=== PATIENT | female | born 1990 | race African-American/Black ===

== ENCOUNTER 2017-03-06 03:54 | Emergency (ER) | payer MEDICAID ==
[~2017-03-06] VITALS: Ht 170.2 cm; Wt 100.0 kg
[2017-03-06] MEDS ORDERED: SODIUM CHLORIDE 0.9% 1,000 ML IV ONE (04:07)
[2017-03-06] MEDS ORDERED: KETOROLAC 30MG/ML VIAL IV STA (04:07)
[2017-03-06] MEDS ORDERED: FAMOTIDINE 20MG/2ML VIAL IV ONE (04:15)
[2017-03-06] MEDS ORDERED: ASPIRIN 81MG TABLET PO ONE (04:15)
[2017-03-06 04:43] LABS: EOSINOPHILS % 0.6 % (0.0-5.0); HEMATOCRIT. 33.1 % (36.0-48.0); HEMOGLOBIN. 10.9 g/dL (12.0-16.0); LYMPHOCYTES % 28.1 % (20.0-50.0); MEAN CORPUSCULAR HEMOGLOBIN 24.8 pg (28.0-32.0); MEAN CORPUSCULAR VOLUME 75.4 fL (81.0-99.0); MEAN PLATELET VOLUME 10.8 fl (7.4-10.4); MONOCYTES % 7.6 % (2.0-8.0); NEUTROPHILS % 62.7 % (40.0-76.0); PLATELET 181 x1000/uL (130-400); RED BLOOD CELL COUNT 4.39 mill/uL (4.2-5.4); RED CELL DISTRIBUTION WIDTH 13.6 % (11.6-14.6)
[2017-03-06] MEDS ORDERED: LABETALOL 5MG/ML SYR 20 MG/4 ML SYRINGE IV ONE (04:45)
[2017-03-06 05:01] LABS: CARBON DIOXIDE 29 mEq/L (21-32); CHLORIDE 107 mEq/L (98-107)
[2017-03-06 05:10] LABS: HCG SCREEN NEGATIVE
[2017-03-06 05:18] LABS: ETHANOL BLOOD < 10 mg/dL; TROPONIN I < 0.02 ng/mL (0.00-0.04)
[2017-03-06 05:45] LABS: CLARITY URINE CLEAR (CLEAR); COLOR URINE YELLOW (YELLOW); GLUCOSE URINE NEGATIVE (NEGATIVE); KETONES URINE NEGATIVE (NEGATIVE); LEUKOCYTE ESTERASE URINE NEGATIVE (NEGATIVE); NITRITE URINE NEGATIVE (NEGATIVE); OCCULT BLOOD URINE NEGATIVE (NEGATIVE); PH URINE 5.5 (4.5-8.0); PROTEIN URINE NEGATIVE (NEGATIVE); SPECIFIC GRAVITY URINE 1.018 (1.005-1.030); UROBILINOGEN URINE 0.2 E.U./dL (0.2-1.0)
[2017-03-06 06:25] VITALS: BP 120/59
[2017-03-06 06:27] LABS: *AMPHETAMINES SCREEN URINE NEGATIVE (NEGATIVE); *BARBITURATES SCREEN URINE NEGATIVE (NEGATIVE); *BENZODIAZEPINES SCREEN URINE NEGATIVE (NEGATIVE); *COCAINE SCREEN URINE NEGATIVE (NEGATIVE); METHADONE URINE SCREEN NEGATIVE (NEGATIVE); OPIATES URINE SCREEN NEGATIVE (NEGATIVE); PHENCYCLIDINE URINE SCREEN NEGATIVE (NEGATIVE)
[2017-03-06 06:30] LABS: CANNABINOID URINE SCREEN PRESUMTIVE POSITIVE (NEGATIVE)
== END 2017-03-06 06:23 | disposition home or self-care (01) ==
LOC: ER 04:06
DX: R07.89 Other chest pain (principal); I10 Essential (primary) hypertension; K76.0 Fatty (change of) liver, not elsewhere classified; E05.90 Thyrotoxicosis, unspecified without thyrotoxic crisis or storm; F41.9 Anxiety disorder, unspecified; F32.9 Major depressive disorder, single episode, unspecified; Z91.14 Patient's other noncompliance with medication regimen; Z91.19 Patient's noncompliance with other medical treatment and regimen
CPT/HCPCS: 36415; 71010; 76705; 80053; 80305; 81003; 83690; 83880; 84443; 84484; 84703; 85025; 93005; 96361; 96374; 96375; 99291; G0482; J1885; J3490; J7030

== ENCOUNTER 2017-05-01 08:49 | Emergency (ER) | payer MEDICAID ==
[~2017-05-01] VITALS: Ht 167.6 cm; Wt 86.0 kg
[~2017-05-01 08:49] MED LIST: AMLO10TA80 PO; ATOR20TA65 PO; METH10TA7 PO; MIRT15TA6 PO; PROP20TA7 PO
[2017-05-01] MEDS ORDERED: SODIUM CHLORIDE 0.9% 1,000 ML IV ONE (12:33)
[2017-05-01] MEDS ORDERED: ONDANSETRON HCL 4MG/2ML VIAL IV STA (12:33)
[2017-05-01 13:02] LABS: BASOPHILS % 0.4 % (0.0-2.0); EOSINOPHILS % 0.6 % (0.0-5.0); HEMATOCRIT. 33.3 % (36.0-48.0); HEMOGLOBIN. 10.8 g/dL (12.0-16.0); MEAN CORPUSCULAR HEMOGLOBIN 24.5 pg (28.0-32.0); MEAN CORPUSCULAR VOLUME 75.9 fL (81.0-99.0); MEAN PLATELET VOLUME 10.3 fl (7.4-10.4); MONOCYTES % 7.1 % (2.0-8.0); NEUTROPHILS % 59.9 % (40.0-76.0); PLATELET 314 x1000/uL (130-400); RED BLOOD CELL COUNT 4.39 mill/uL (4.2-5.4); RED CELL DISTRIBUTION WIDTH 14.3 % (11.6-14.6)
[2017-05-01 13:10] LABS: CLARITY URINE CLEAR (CLEAR); COLOR URINE YELLOW (YELLOW); KETONES URINE NEGATIVE (NEGATIVE); LEUKOCYTE ESTERASE URINE NEGATIVE (NEGATIVE); NITRITE URINE NEGATIVE (NEGATIVE); OCCULT BLOOD URINE NEGATIVE (NEGATIVE); PH URINE 7.5 (4.5-8.0); PROTEIN URINE NEGATIVE (NEGATIVE); SPECIFIC GRAVITY URINE 1.017 (1.005-1.030); UROBILINOGEN URINE 0.2 E.U./dL (0.2-1.0)
[2017-05-01 13:10] LABS: CHLORIDE 107 mEq/L (98-107)
[2017-05-01 13:33] LABS: CARBON DIOXIDE 26 mEq/L (21-32); T4 FREE 3.07 ng/dL (0.76-1.46)
[2017-05-01 13:34] LABS: *AMPHETAMINES SCREEN URINE NEGATIVE (NEGATIVE); *BARBITURATES SCREEN URINE NEGATIVE (NEGATIVE); *BENZODIAZEPINES SCREEN URINE NEGATIVE (NEGATIVE); *COCAINE SCREEN URINE NEGATIVE (NEGATIVE); CANNABINOID URINE SCREEN NEGATIVE (NEGATIVE); METHADONE URINE SCREEN NEGATIVE (NEGATIVE); OPIATES URINE SCREEN NEGATIVE (NEGATIVE); PHENCYCLIDINE URINE SCREEN NEGATIVE (NEGATIVE)
[2017-05-01 14:21] VITALS: BP 131/67
== END 2017-05-01 14:24 | disposition home or self-care (01) ==
LOC: ER 08:59
DX: H60.91 Unspecified otitis externa, right ear (principal); E05.90 Thyrotoxicosis, unspecified without thyrotoxic crisis or storm; I10 Essential (primary) hypertension
CPT/HCPCS: 36415; 80053; 80305; 81003; 81025; 83690; 84439; 84443; 84481; 85025; 96361; 96374; 99284; J2405; J7030

== ENCOUNTER 2017-06-12 21:49 | Emergency (ER) | payer MEDICAID ==
[~2017-06-12] VITALS: Ht 162.6 cm; Wt 90.0 kg
[2017-06-13] MEDS ORDERED: IBUPROFEN 600MG TABLET PO ONE (01:00)
[2017-06-13 04:00] VITALS: BP 130/77
[2017-06-16] MEDS ORDERED: METH10TA7 PO (21:50)
== END 2017-06-13 04:26 | disposition home or self-care (01) ==
LOC: ER 22:08
DX: S50.11XA Contusion of right forearm, initial encounter (principal); W19.XXXA Unspecified fall, initial encounter; Y93.89 Activity, other specified; Y92.89 Other specified places as the place of occurrence of the external cause; Y99.8 Other external cause status
CPT/HCPCS: 73090; 81025; 99284

== ENCOUNTER 2017-11-16 11:31 | Emergency (ER) | payer MEDICAID ==
[~2017-11-16] VITALS: Ht 167.6 cm; Wt 86.0 kg
[2017-11-16 12:32] LABS: BASOPHILS % 1.1 % (0.0-2.0); EOSINOPHILS % 0.7 % (0.0-5.0); HEMATOCRIT. 38.6 % (36.0-48.0); HEMOGLOBIN. 12.6 g/dL (12.0-16.0); LYMPHOCYTES % 30.6 % (20.0-50.0); MEAN CORPUSCULAR HEMOGLOBIN 26.6 pg (28.0-32.0); MEAN CORPUSCULAR VOLUME 81.9 fL (81.0-99.0); MEAN PLATELET VOLUME 10.8 fl (7.4-10.4); MONOCYTES % 7.3 % (2.0-8.0); NEUTROPHILS % 60.3 % (40.0-76.0); PLATELET 245 x1000/uL (130-400); RED BLOOD CELL COUNT 4.72 mill/uL (4.2-5.4); RED CELL DISTRIBUTION WIDTH 14.1 % (11.6-14.6)
[2017-11-16 12:34] LABS: CHLORIDE 106 mEq/L (98-107)
[2017-11-16 12:37] LABS: INR 1.1; PROTHROMBIN TIME 11.7 sec (9.4-11.6)
[2017-11-16 12:38] LABS: CLARITY URINE CLEAR (CLEAR); COLOR URINE DARK YELLOW (YELLOW); KETONES URINE TRACE (NEGATIVE); LEUKOCYTE ESTERASE URINE NEGATIVE (NEGATIVE); NITRITE URINE NEGATIVE (NEGATIVE); OCCULT BLOOD URINE NEGATIVE (NEGATIVE); PROTEIN URINE 1+ (NEGATIVE); SPECIFIC GRAVITY URINE 1.028 (1.005-1.030); UROBILINOGEN URINE 0.2 E.U./dL (0.2-1.0)
[2017-11-16 12:54] LABS: *AMPHETAMINES SCREEN URINE NEGATIVE (NEGATIVE)
[2017-11-16 12:55] LABS: *BARBITURATES SCREEN URINE NEGATIVE (NEGATIVE); *BENZODIAZEPINES SCREEN URINE NEGATIVE (NEGATIVE); *COCAINE SCREEN URINE NEGATIVE (NEGATIVE); CANNABINOID URINE SCREEN NEGATIVE (NEGATIVE); METHADONE URINE SCREEN NEGATIVE (NEGATIVE); OPIATES URINE SCREEN NEGATIVE (NEGATIVE)
[2017-11-16 12:58] LABS: PHENCYCLIDINE URINE SCREEN NEGATIVE (NEGATIVE)
[2017-11-16] MEDS ORDERED: ONDANSETRON HCL 4MG/2ML VIAL IV STA (14:28)
[2017-11-16] MEDS ORDERED: ACETAMINOPHEN 325MG TABLET PO STA (14:28)
[2017-11-16] MEDS ORDERED: MAGNESIUM/ALUMINUM HYDROXIDE/SIMETHICONE 30ML UDC PO STA (14:28)
[2017-11-16] MEDS ORDERED: FAMOTIDINE 20MG/2ML VIAL IV STA (14:28)
[2017-11-16] MEDS ORDERED: SODIUM CHLORIDE 0.9% 1,000 ML IV ONE (14:28)
[2017-11-16 15:54] LABS: T4 FREE 1.45 ng/dL (0.76-1.46)
[2017-11-16] MEDS ORDERED: KETOROLAC 30MG/ML VIAL IV ONE (16:30)
[2017-11-16 21:17] VITALS: BP 158/68
== END 2017-11-16 21:29 | disposition home or self-care (01) ==
LOC: ER 13:13
DX: R10.13 Epigastric pain (principal); I11.0 Hypertensive heart disease with heart failure; I50.9 Heart failure, unspecified; E78.00 Pure hypercholesterolemia, unspecified; E05.90 Thyrotoxicosis, unspecified without thyrotoxic crisis or storm
CPT/HCPCS: 36415; 74176; 80053; 80305; 81003; 81025; 83690; 84439; 84443; 84481; 85025; 85610; 96374; 96375; 99285; J1885; J2405; J3490; J7030; Z7610

== ENCOUNTER 2017-12-13 18:52 | Emergency (ER) | payer MEDICAID ==
[~2017-12-13] VITALS: Ht 162.6 cm; Wt 89.0 kg
[2017-12-13] MEDS ORDERED: LORAZEPAM 2MG/ML CPJ IV STA (19:26)
[2017-12-13] MEDS ORDERED: SODIUM CHLORIDE 0.9% 1,000 ML IV ONE (19:26)
[2017-12-13] MEDS ORDERED: METHIMAZOLE 5MG TABLET PO ONE (19:30)
[2017-12-13 19:57] LABS: HCG SCREEN NEGATIVE
[2017-12-13 20:00] LABS: CHLORIDE 106 mEq/L (98-107)
[2017-12-13 20:02] LABS: BASOPHILS % 0.4 % (0.0-2.0); EOSINOPHILS % 0.2 % (0.0-5.0); HEMATOCRIT. 35.5 % (36.0-48.0); HEMOGLOBIN. 11.8 g/dL (12.0-16.0); LYMPHOCYTES % 23.4 % (20.0-50.0); MEAN CORPUSCULAR HEMOGLOBIN 26.5 pg (28.0-32.0); MEAN CORPUSCULAR VOLUME 79.9 fL (81.0-99.0); MEAN PLATELET VOLUME 11.2 fl (7.4-10.4); MONOCYTES % 8.3 % (2.0-8.0); NEUTROPHILS % 67.7 % (40.0-76.0); PLATELET 211 x1000/uL (130-400); RED BLOOD CELL COUNT 4.45 mill/uL (4.2-5.4)
[2017-12-13 20:03] LABS: INR 1.1; PROTHROMBIN TIME 11.2 sec (9.1-11.1)
[2017-12-13 20:05] LABS: ETHANOL BLOOD < 10 mg/dL
[2017-12-13 20:09] LABS: CREATINE KINASE 67 IU/L (26-192)
[2017-12-13 20:10] LABS: T4 FREE 2.68 ng/dL (0.76-1.46)
[2017-12-13 22:10] LABS: CLARITY URINE CLOUDY (CLEAR); COLOR URINE YELLOW (YELLOW); KETONES URINE NEGATIVE (NEGATIVE); LEUKOCYTE ESTERASE URINE 1+ (NEGATIVE); NITRITE URINE NEGATIVE (NEGATIVE); OCCULT BLOOD URINE NEGATIVE (NEGATIVE); PH URINE 8.5 (4.5-8.0); PROTEIN URINE NEGATIVE (NEGATIVE); SPECIFIC GRAVITY URINE 1.018 (1.005-1.030); UROBILINOGEN URINE 0.2 E.U./dL (0.2-1.0)
[2017-12-13 22:24] LABS: *AMPHETAMINES SCREEN URINE NEGATIVE (NEGATIVE); *BARBITURATES SCREEN URINE NEGATIVE (NEGATIVE); *BENZODIAZEPINES SCREEN URINE NEGATIVE (NEGATIVE); *COCAINE SCREEN URINE NEGATIVE (NEGATIVE)
[2017-12-13 22:25] LABS: CANNABINOID URINE SCREEN NEGATIVE (NEGATIVE); OPIATES URINE SCREEN NEGATIVE (NEGATIVE); PHENCYCLIDINE URINE SCREEN NEGATIVE (NEGATIVE)
[2017-12-13 22:27] LABS: METHADONE URINE SCREEN NEGATIVE (NEGATIVE)
[2017-12-14 01:45] VITALS: BP 136/94
== END 2017-12-14 01:45 | disposition home or self-care (01) ==
LOC: ER 20:58
DX: E05.90 Thyrotoxicosis, unspecified without thyrotoxic crisis or storm (principal); I11.0 Hypertensive heart disease with heart failure; R00.0 Tachycardia, unspecified; I50.9 Heart failure, unspecified; E78.00 Pure hypercholesterolemia, unspecified; Z91.14 Patient's other noncompliance with medication regimen
CPT/HCPCS: 36415; 80053; 80305; 81003; 82550; 82962; 83880; 84439; 84443; 84481; 84484; 84703; 85025; 85610; 93005; 96361; 96374; 99285; G0482; J2060; J7030; Z7610

== ENCOUNTER 2018-02-04 15:34 | Emergency (ER) | payer MEDICAID ==
[~2018-02-04] VITALS: Ht 165.1 cm; Wt 85.0 kg
[2018-02-04 15:42] VITALS: BP 145/90
== END 2018-02-04 18:17 | disposition left against medical advice (07) ==
LOC: ER 15:49
DX: R10.9 Unspecified abdominal pain (principal); Z53.21 Procedure and treatment not carried out due to patient leaving prior to being seen by health care provider

== ENCOUNTER 2018-04-24 13:29 | Emergency (ER) | payer MEDICAID ==
[~2018-04-24] VITALS: Ht 165.1 cm; Wt 120.0 kg
[2018-04-24] MEDS ORDERED: SODIUM CHLORIDE 0.9% 1,000 ML IV ONE (14:09)
[2018-04-24] MEDS ORDERED: ACETAMINOPHEN 325MG TABLET PO STA (14:09)
[2018-04-24] MEDS ORDERED: DIPHENHYDRAMINE 50MG/ML VIAL IV ONE (14:30)
[2018-04-24 15:27] LABS: BASOPHILS % 0.6 % (0.0-2.0); EOSINOPHILS % 0.3 % (0.0-5.0); HEMATOCRIT. 34.1 % (36.0-48.0); HEMOGLOBIN. 11.2 g/dL (12.0-16.0); LYMPHOCYTES % 28.9 % (20.0-50.0); MEAN CORPUSCULAR VOLUME 79.3 fL (81.0-99.0); MEAN PLATELET VOLUME 10.2 fl (7.4-10.4); MONOCYTES % 5.4 % (2.0-8.0); NEUTROPHILS % 64.8 % (40.0-76.0); PLATELET 265 x1000/uL (130-400); RED CELL DISTRIBUTION WIDTH 14.7 % (11.6-14.6)
[2018-04-24 15:32] LABS: CHLORIDE 103 mEq/L (98-107)
[2018-04-24 15:38] LABS: CLARITY URINE CLEAR (CLEAR); COLOR URINE YELLOW (YELLOW); KETONES URINE NEGATIVE (NEGATIVE); LEUKOCYTE ESTERASE URINE NEGATIVE (NEGATIVE); NITRITE URINE NEGATIVE (NEGATIVE); OCCULT BLOOD URINE NEGATIVE (NEGATIVE); PH URINE 6.5 (4.5-8.0); PROTEIN URINE TRACE (NEGATIVE); SPECIFIC GRAVITY URINE 1.027 (1.005-1.030); UROBILINOGEN URINE 0.2 E.U./dL (0.2-1.0)
[2018-04-24 15:56] LABS: B-HCG QUANTITATIVE 38522 mIU/mL (<3)
[2018-04-24 18:40] VITALS: BP 125/74
== END 2018-04-24 18:42 | disposition home or self-care (01) ==
LOC: ER 14:08
DX: O21.9 Vomiting of pregnancy, unspecified (principal); O26.891 Other specified pregnancy related conditions, first trimester; O16.1 Unspecified maternal hypertension, first trimester; O99.281 Endocrine, nutritional and metabolic diseases complicating pregnancy, first trimester; E03.9 Hypothyroidism, unspecified; R10.30 Lower abdominal pain, unspecified; Z3A.01 Less than 8 weeks gestation of pregnancy
CPT/HCPCS: 36415; 76801; 76817; 80053; 81003; 81025; 84702; 85025; 86850; 86900; 86901; 87804; 96360; 96361; 99284; J7030

== ENCOUNTER 2018-05-16 17:03 | Emergency (ER) | payer MEDICAID ==
[~2018-05-16] VITALS: Ht 167.6 cm; Wt 97.0 kg
[2018-05-17] MEDS ORDERED: SODIUM CHLORIDE 0.9% 1,000 ML IV ONE (00:09)
[2018-05-17] MEDS ORDERED: ONDANSETRON HCL 4MG/2ML INJ IV ONE (00:15)
[2018-05-17 01:39] LABS: CLARITY URINE CLEAR (CLEAR); COLOR URINE YELLOW (YELLOW); KETONES URINE NEGATIVE (NEGATIVE); LEUKOCYTE ESTERASE URINE NEGATIVE (NEGATIVE); NITRITE URINE NEGATIVE (NEGATIVE); OCCULT BLOOD URINE NEGATIVE (NEGATIVE); PROTEIN URINE NEGATIVE (NEGATIVE); SPECIFIC GRAVITY URINE 1.006 (1.005-1.030); UROBILINOGEN URINE 0.2 E.U./dL (0.2-1.0)
[2018-05-17 03:15] LABS: BASOPHILS % 0.3 % (0.0-2.0); CHLORIDE 105 mEq/L (98-107); EOSINOPHILS % 0.2 % (0.0-5.0); HEMATOCRIT. 34.3 % (36.0-48.0); HEMOGLOBIN. 11.3 g/dL (12.0-16.0); LYMPHOCYTES % 23.7 % (20.0-50.0); MEAN CORPUSCULAR VOLUME 79.4 fL (81.0-99.0); MEAN PLATELET VOLUME 10.9 fl (7.4-10.4); MONOCYTES % 4.7 % (2.0-8.0); NEUTROPHILS % 71.1 % (40.0-76.0); PLATELET 243 x1000/uL (130-400); RED BLOOD CELL COUNT 4.32 mill/uL (4.2-5.4); RED CELL DISTRIBUTION WIDTH 13.4 % (11.6-14.6)
[2018-05-17] MEDS ORDERED: ACETAMINOPHEN 325MG TABLET PO ONE (03:30)
[2018-05-17 03:39] LABS: B-HCG QUANTITATIVE 101763 mIU/mL (<3)
[2018-05-17 06:40] VITALS: BP 121/67
== END 2018-05-17 06:45 | disposition home or self-care (01) ==
LOC: ER 17:03
DX: O21.0 Mild hyperemesis gravidarum (principal); Z3A.10 10 weeks gestation of pregnancy; O26.891 Other specified pregnancy related conditions, first trimester; I11.0 Hypertensive heart disease with heart failure; I50.9 Heart failure, unspecified
CPT/HCPCS: 36415; 76830; 76856; 80053; 81003; 84702; 85025; 96361; 96374; 99284; C1893; J2405; J7030; Z7610

== ENCOUNTER 2018-05-21 12:05 | Inpatient (IN) | payer MEDICAID ==
[~2018-05-21] VITALS: Ht 154.9 cm; Wt 92.7 kg
[2018-05-21] MEDS ORDERED: SODIUM CHLORIDE 0.9% 1,000 ML IV ONE (12:55)
[2018-05-21] MEDS ORDERED: ONDANSETRON HCL 4MG/2ML INJ IV ONE (13:00)
[2018-05-21 14:29] LABS: BASOPHILS % 0.5 % (0.0-2.0); EOSINOPHILS % 0.1 % (0.0-5.0); HEMATOCRIT. 34.8 % (36.0-48.0); HEMOGLOBIN. 11.3 g/dL (12.0-16.0); LYMPHOCYTES % 19.1 % (20.0-50.0); MEAN CORPUSCULAR VOLUME 80.1 fL (81.0-99.0); MEAN PLATELET VOLUME 11.3 fl (7.4-10.4); MONOCYTES % 7.6 % (2.0-8.0); NEUTROPHILS % 72.7 % (40.0-76.0); PLATELET 235 x1000/uL (130-400); RED BLOOD CELL COUNT 4.35 mill/uL (4.2-5.4); RED CELL DISTRIBUTION WIDTH 13.4 % (11.6-14.6)
[2018-05-21 14:36] LABS: CHLORIDE 106 mEq/L (98-107)
[2018-05-21 14:48] LABS: T4 FREE 3.01 ng/dL (0.76-1.46)
[2018-05-21 15:07] LABS: B-HCG QUANTITATIVE 97823 mIU/mL (<3)
[2018-05-21] MEDS ORDERED: ACETAMINOPHEN 325MG TABLET PO ONE (20:15)
[2018-05-21] MEDS ORDERED: PROMETHAZINE HCL 25MG TABLET PO PRN (22:00)
[2018-05-21] MEDS ORDERED: ACETAMINOPHEN 325MG TABLET PO PRN (22:00)
[2018-05-21 23:44] VITALS: BP 123/72
[2018-05-22] VITALS: BP 123/72
[2018-05-22] MEDS ORDERED: METHIMAZOLE 5MG TABLET PO SCH ×2 (01:00)
[2018-05-22 04:00] VITALS: BP 153/83
[2018-05-22] MEDS: METHIMAZOLE 5MG TABLET PO SCH ×2 (06:04→17:05)
[2018-05-22 07:29] LABS: BASOPHILS % 0.4 % (0.0-2.0); EOSINOPHILS % 0.5 % (0.0-5.0); HEMATOCRIT. 32.7 % (36.0-48.0); HEMOGLOBIN. 10.8 g/dL (12.0-16.0); LYMPHOCYTES % 34.1 % (20.0-50.0); MEAN CORPUSCULAR VOLUME 79.1 fL (81.0-99.0); MEAN PLATELET VOLUME 11.3 fl (7.4-10.4); MONOCYTES % 8.7 % (2.0-8.0); NEUTROPHILS % 56.3 % (40.0-76.0); PLATELET 201 x1000/uL (130-400); RED BLOOD CELL COUNT 4.14 mill/uL (4.2-5.4); RED CELL DISTRIBUTION WIDTH 13.5 % (11.6-14.6)
[2018-05-22 08:00] VITALS: BP 130/68
[2018-05-22 08:00] LABS: CHLORIDE 108 mEq/L (98-107)
[2018-05-22] MEDS ORDERED: ZINC SULF/CUSO4 P-HYD/MANG/CR 10 ML VIAL IV SCH (09:00)
[2018-05-22] MEDS: PANTOPRAZOLE SODIUM 40 MG/VIAL IV SCH (10:18)
[2018-05-22 12:00] VITALS: BP 143/65
[2018-05-22] MEDS ORDERED: PYRIDOXINE 100 MG/ML 1ML IM SCH (15:00)
[2018-05-22 16:00] VITALS: BP 136/64
[2018-05-22] MEDS: MVI, ADULT NO.1 10 ML in SODIUM CHLORIDE 0.9% 1,000 ML IV SCH ×2 (17:07)
[2018-05-22] MEDS: ONDANSETRON HCL 4MG/2ML INJ IV PRN (19:26)
[2018-05-22 20:00] VITALS: BP 150/90
[2018-05-22] MEDS ORDERED: PYRIDOXINE 100 MG/ML 1ML IM NR (23:30)
[2018-05-23] VITALS: BP 149/79
[2018-05-23 04:00] VITALS: BP 136/64
[2018-05-23] MEDS: SODIUM CHLORIDE 0.9% 1,000 ML IV SCH ×3 (04:32→17:23)
[2018-05-23 07:04] LABS: CHLORIDE 107 mEq/L (98-107)
[2018-05-23 07:24] LABS: BASOPHILS % 0.3 % (0.0-2.0); EOSINOPHILS % 0.2 % (0.0-5.0); HEMATOCRIT. 30.4 % (36.0-48.0); HEMOGLOBIN. 10.1 g/dL (12.0-16.0); MEAN CORPUSCULAR HEMOGLOBIN 26.4 pg (28.0-32.0); MEAN CORPUSCULAR VOLUME 79.2 fL (81.0-99.0); MEAN PLATELET VOLUME 11.1 fl (7.4-10.4); MONOCYTES % 6.4 % (2.0-8.0); NEUTROPHILS % 71.1 % (40.0-76.0); PLATELET 183 x1000/uL (130-400); RED BLOOD CELL COUNT 3.83 mill/uL (4.2-5.4); RED CELL DISTRIBUTION WIDTH 13.2 % (11.6-14.6)
[2018-05-23 07:44] VITALS: BP 137/78
[2018-05-23] MEDS: PANTOPRAZOLE SODIUM 40 MG/VIAL IV SCH (08:47)
[2018-05-23] MEDS: METHIMAZOLE 5MG TABLET PO SCH ×2 (08:47→17:22)
[2018-05-23 11:55] VITALS: BP 154/88
[2018-05-23] MEDS: MVI, ADULT NO.1 10 ML in SODIUM CHLORIDE 0.9% 1,000 ML IV SCH ×2 (14:58)
[2018-05-23 16:00] VITALS: BP 131/67
[2018-05-23] MEDS: ONDANSETRON HCL 4MG/2ML INJ IV PRN (17:22)
[2018-05-23 18:31] VITALS: BP_SYST 131; BP_SYST 143; BP_DIAS 67; BP_DIAS 89
== END 2018-05-23 21:25 | disposition home or self-care (01) | DRG 566 ==
LOC: ER 12:05 → 6EST 17:16 → ENRESERV 21:30 → 8WST 23:40
PROVIDERS: ADMIT Internal Medicine; ATTEND Internal Medicine
DX: O21.0 Mild hyperemesis gravidarum (principal); I42.9 Cardiomyopathy, unspecified; O16.1 Unspecified maternal hypertension, first trimester; I11.0 Hypertensive heart disease with heart failure; I50.9 Heart failure, unspecified; O99.89 Other specified diseases and conditions complicating pregnancy, childbirth and the puerperium; O99.281 Endocrine, nutritional and metabolic diseases complicating pregnancy, first trimester; F41.9 Anxiety disorder, unspecified; O99.211 Obesity complicating pregnancy, first trimester; D64.9 Anemia, unspecified; F32.9 Major depressive disorder, single episode, unspecified; E05.00 Thyrotoxicosis with diffuse goiter without thyrotoxic crisis or storm; O99.011 Anemia complicating pregnancy, first trimester; O99.341 Other mental disorders complicating pregnancy, first trimester; Z68.38 Body mass index [BMI] 38.0-38.9, adult; Z3A.10 10 weeks gestation of pregnancy
CPT/HCPCS: 36415; 76801; 80048; 84439; 84443; 84702; 93970; 96361; 96374; 99285; C9113; J2405; J3415; J3490; J7030; Q0169

== ENCOUNTER 2018-07-01 21:15 | Emergency (ER) | payer MEDICAID ==
[~2018-07-01] VITALS: Ht 157.5 cm; Wt 94.0 kg
[2018-07-01 21:49] LABS: CLARITY URINE CLEAR (CLEAR); COLOR URINE YELLOW (YELLOW); KETONES URINE 1+ (NEGATIVE); LEUKOCYTE ESTERASE URINE NEGATIVE (NEGATIVE); NITRITE URINE NEGATIVE (NEGATIVE); OCCULT BLOOD URINE NEGATIVE (NEGATIVE); PH URINE 6.5 (4.5-8.0); PROTEIN URINE 2+ (NEGATIVE); SPECIFIC GRAVITY URINE 1.028 (1.005-1.030)
[2018-07-02] MEDS ORDERED: SODIUM CHLORIDE 0.9% 1,000 ML IV ONE (00:50)
[2018-07-02] MEDS ORDERED: SODIUM CHLORIDE 0.9% 500 ML IV ONE (01:00)
[2018-07-02] MEDS ORDERED: METOCLOPRAMIDE HCL 10MG/2ML VIAL IV NR (01:00)
[2018-07-02 01:10] LABS: BASOPHILS % 0.3 % (0.0-2.0); EOSINOPHILS % 0.6 % (0.0-5.0); HEMATOCRIT. 33.5 % (36.0-48.0); HEMOGLOBIN. 11.3 g/dL (12.0-16.0); LYMPHOCYTES % 9.6 % (20.0-50.0); MEAN CORPUSCULAR HEMOGLOBIN 26.2 pg (28.0-32.0); MEAN CORPUSCULAR VOLUME 77.9 fL (81.0-99.0); MEAN PLATELET VOLUME 10.5 fl (7.4-10.4); MONOCYTES % 5.9 % (2.0-8.0); NEUTROPHILS % 83.6 % (40.0-76.0); PLATELET 203 x1000/uL (130-400); RED CELL DISTRIBUTION WIDTH 13.9 % (11.6-14.6)
[2018-07-02 01:18] LABS: CHLORIDE 104 mEq/L (98-107)
[2018-07-02 01:30] LABS: CREATINE KINASE 88 IU/L (26-192); CREATINE KINASE MB FRACTION < 1.0 ng/mL (0.5-3.6)
[2018-07-02 01:32] LABS: T4 FREE 1.36 ng/dL (0.76-1.46)
[2018-07-02 01:42] LABS: B-HCG QUANTITATIVE 19746 mIU/mL (<3)
[2018-07-02 02:18] LABS: *AMPHETAMINES SCREEN URINE NEGATIVE (NEGATIVE); *BARBITURATES SCREEN URINE NEGATIVE (NEGATIVE); *BENZODIAZEPINES SCREEN URINE NEGATIVE (NEGATIVE); *COCAINE SCREEN URINE NEGATIVE (NEGATIVE)
[2018-07-02 02:19] LABS: CANNABINOID URINE SCREEN NEGATIVE (NEGATIVE); METHADONE URINE SCREEN NEGATIVE (NEGATIVE); OPIATES URINE SCREEN NEGATIVE (NEGATIVE); PHENCYCLIDINE URINE SCREEN NEGATIVE (NEGATIVE)
[2018-07-02] MEDS ORDERED: PROPRANOLOL HCL 10MG TABLET PO ONE (04:30)
[2018-07-02 05:59] VITALS: BP 131/66
== END 2018-07-02 06:03 | disposition home or self-care (01) ==
LOC: ER 22:15
DX: O99.282 Endocrine, nutritional and metabolic diseases complicating pregnancy, second trimester (principal); O21.9 Vomiting of pregnancy, unspecified; O99.412 Diseases of the circulatory system complicating pregnancy, second trimester; I42.9 Cardiomyopathy, unspecified; O26.892 Other specified pregnancy related conditions, second trimester; H05.20 Unspecified exophthalmos; Z3A.16 16 weeks gestation of pregnancy
CPT/HCPCS: 36415; 76805; 80053; 80305; 81003; 81025; 82550; 82553; 83880; 84439; 84443; 84480; 84484; 84702; 85025; 86850; 86900; 86901; 93005; 96361; 96374; 99284; J2765; J7040; Z7610

== ENCOUNTER 2018-07-23 12:15 | Emergency (ER) | payer MEDICAID ==
[~2018-07-23] VITALS: Ht 154.9 cm; Wt 97.0 kg
[2018-07-23] MEDS ORDERED: ONDANSETRON HCL 4MG/2ML INJ IV STA (13:00)
[2018-07-23] MEDS ORDERED: ACETAMINOPHEN 325MG TABLET PO PRN (13:00)
[2018-07-23] MEDS ORDERED: SODIUM CHLORIDE 0.9% 1,000 ML IV ONE (13:00)
[2018-07-23 13:10] LABS: CLARITY URINE CLEAR (CLEAR); COLOR URINE YELLOW (YELLOW); KETONES URINE NEGATIVE (NEGATIVE); LEUKOCYTE ESTERASE URINE NEGATIVE (NEGATIVE); NITRITE URINE NEGATIVE (NEGATIVE); OCCULT BLOOD URINE NEGATIVE (NEGATIVE); PROTEIN URINE NEGATIVE (NEGATIVE); UROBILINOGEN URINE 0.2 E.U./dL (0.2-1.0)
[2018-07-23 13:16] LABS: BASOPHILS % 0.2 % (0.0-2.0); EOSINOPHILS % 0.4 % (0.0-5.0); HEMATOCRIT. 33.2 % (36.0-48.0); LYMPHOCYTES % 17.9 % (20.0-50.0); MEAN CORPUSCULAR HEMOGLOBIN 25.7 pg (28.0-32.0); MEAN CORPUSCULAR VOLUME 77.3 fL (81.0-99.0); MEAN PLATELET VOLUME 10.3 fl (7.4-10.4); MONOCYTES % 4.9 % (2.0-8.0); NEUTROPHILS % 76.6 % (40.0-76.0); PLATELET 204 x1000/uL (130-400); RED BLOOD CELL COUNT 4.29 mill/uL (4.2-5.4); RED CELL DISTRIBUTION WIDTH 14.3 % (11.6-14.6)
[2018-07-23 13:22] LABS: CHLORIDE 105 mEq/L (98-107)
[2018-07-23 13:23] LABS: PROTHROMBIN TIME 10.3 sec (9.6-11.0)
[2018-07-23 13:25] LABS: ETHANOL BLOOD < 10 mg/dL
[2018-07-23 13:30] LABS: *AMPHETAMINES SCREEN URINE NEGATIVE (NEGATIVE)
[2018-07-23 13:31] LABS: *BARBITURATES SCREEN URINE NEGATIVE (NEGATIVE); *BENZODIAZEPINES SCREEN URINE NEGATIVE (NEGATIVE); *COCAINE SCREEN URINE NEGATIVE (NEGATIVE); CANNABINOID URINE SCREEN NEGATIVE (NEGATIVE); METHADONE URINE SCREEN NEGATIVE (NEGATIVE); OPIATES URINE SCREEN NEGATIVE (NEGATIVE)
[2018-07-23 13:32] LABS: PHENCYCLIDINE URINE SCREEN NEGATIVE (NEGATIVE)
[2018-07-23 13:46] LABS: B-HCG QUANTITATIVE 16175 mIU/mL (<3)
[2018-07-23 17:01] VITALS: BP 140/78
== END 2018-07-23 17:14 | disposition home or self-care (01) ==
LOC: ER 12:15
DX: O26.892 Other specified pregnancy related conditions, second trimester (principal); K59.00 Constipation, unspecified; O21.0 Mild hyperemesis gravidarum; Z3A.19 19 weeks gestation of pregnancy; E05.90 Thyrotoxicosis, unspecified without thyrotoxic crisis or storm
CPT/HCPCS: 36415; 76805; 80053; 80305; 80320; 81003; 81025; 83605; 83690; 84443; 84702; 85025; 85610; 93005; 96361; 96374; 99284; J2405; J7030; G0480

== ENCOUNTER 2018-08-06 17:23 | Observation (INO) | payer MEDICAID ==
[~2018-08-06] VITALS: Ht 154.9 cm; Wt 98.9 kg
[2018-08-06] MEDS ORDERED: PRO1 PO (18:25)
[2018-08-06] MEDS ORDERED: VITAMIN B6 PO (18:25)
== END 2018-08-06 18:45 | disposition home or self-care (01) ==
LOC: 8 EST LDRP 17:23
PROVIDERS: ADMIT Obstetrics & Gynecology; ATTEND Obstetrics & Gynecology
DX: O36.8120 Decreased fetal movements, second trimester, not applicable or unspecified (principal); Z3A.22 22 weeks gestation of pregnancy
CPT/HCPCS: 99281; G0378

== ENCOUNTER 2019-02-01 18:08 | Emergency (ER) | payer MEDICAID ==
[~2019-02-01] VITALS: Ht 162.6 cm; Wt 96.5 kg
[~2019-02-01 18:08] MED LIST changes: -AMLO10TA80 PO; -ATOR20TA65 PO; -METH10TA7 PO; -MIRT15TA6 PO; +PRO1 PO; -PROP20TA7 PO; +VITAMIN B6 PO
[2019-02-01 21:50] LABS: CLARITY URINE CLEAR (CLEAR); COLOR URINE YELLOW (YELLOW); KETONES URINE TRACE (NEGATIVE); LEUKOCYTE ESTERASE URINE 2+ (NEGATIVE); NITRITE URINE NEGATIVE (NEGATIVE); OCCULT BLOOD URINE NEGATIVE (NEGATIVE); PROTEIN URINE 2+ (NEGATIVE); SPECIFIC GRAVITY URINE 1.031 (1.005-1.030)
[2019-02-01 23:37] LABS: BASOPHILS % 0.6 % (0.0-2.0); EOSINOPHILS % 0.3 % (0.0-5.0); HEMATOCRIT. 34.3 % (36.0-48.0); HEMOGLOBIN. 10.6 g/dL (12.0-16.0); LYMPHOCYTES % 20.6 % (20.0-50.0); MEAN CORPUSCULAR HEMOGLOBIN 21.2 pg (28.0-32.0); MEAN CORPUSCULAR VOLUME 68.8 fL (81.0-99.0); MONOCYTES % 7.6 % (2.0-8.0); NEUTROPHILS % 70.9 % (40.0-76.0); PLATELET 229 x1000/uL (130-400); RED BLOOD CELL COUNT 4.98 mill/uL (4.2-5.4); RED CELL DISTRIBUTION WIDTH 19.9 % (11.6-14.6)
[2019-02-01 23:45] LABS: CHLORIDE 110 mEq/L (98-107)
[2019-02-01 23:56] LABS: B-HCG QUANTITATIVE < 1 mIU/mL (<3)
[2019-02-02 00:05] LABS: HCG SCREEN NEGATIVE
[2019-02-02 00:42] VITALS: BP 148/79
[2019-02-02 03:18] LABS: PLATELET ESTIMATE NORMAL
[2019-03-06] MEDS ORDERED: ASPI-1393 MT (12:26)
== END 2019-02-02 00:44 | disposition home or self-care (01) ==
LOC: ER 18:08
DX: D25.9 Leiomyoma of uterus, unspecified (principal)
CPT/HCPCS: 36415; 76830; 76856; 81003; 84702; 84703; 86850; 86900; 99284

== ENCOUNTER 2019-02-22 06:19 | Emergency (ER) | payer MEDICAID ==
[~2019-02-22] VITALS: Ht 154.9 cm; Wt 73.0 kg
[2019-02-22] MEDS ORDERED: MORPHINE SULFATE 4 MG/ML CPJ (NOT FOR IM USE) IV STA (06:42)
[2019-02-22] MEDS ORDERED: FAMOTIDINE 20MG/2ML VIAL IV STA (06:42)
[2019-02-22] MEDS ORDERED: ONDANSETRON HCL 4MG/2ML INJ IV STA (06:42)
[2019-02-22] MEDS ORDERED: MAGNESIUM/ALUMINUM HYDROXIDE/SIMETHICONE 30ML UDC PO STA (06:42)
[2019-02-22 07:07] LABS: CHLORIDE 109 mEq/L (98-107)
[2019-02-22 07:08] LABS: BASOPHILS % 0.7 % (0.0-2.0); EOSINOPHILS % 1.1 % (0.0-5.0); HEMATOCRIT. 35.3 % (36.0-48.0); HEMOGLOBIN. 11.1 g/dL (12.0-16.0); MEAN CORPUSCULAR HEMOGLOBIN 22.2 pg (28.0-32.0); MEAN CORPUSCULAR VOLUME 70.6 fL (81.0-99.0); MEAN PLATELET VOLUME 10.7 fl (7.4-10.4); MONOCYTES % 7.9 % (2.0-8.0); NEUTROPHILS % 59.3 % (40.0-76.0); PLATELET 213 x1000/uL (130-400); RED CELL DISTRIBUTION WIDTH 19.5 % (11.6-14.6)
[2019-02-22 07:09] LABS: HCG SCREEN NEGATIVE
[2019-02-22 07:11] LABS: ETHANOL BLOOD < 10 mg/dL
[2019-02-22 07:20] LABS: PARTIAL THROMBOPLASTIN TIME 26.8 sec (23.4-31.0); PROTHROMBIN TIME 10.7 sec (9.6-11.0)
[2019-02-22 07:25] LABS: CLARITY URINE CLEAR (CLEAR); COLOR URINE YELLOW (YELLOW); KETONES URINE NEGATIVE (NEGATIVE); LEUKOCYTE ESTERASE URINE NEGATIVE (NEGATIVE); NITRITE URINE NEGATIVE (NEGATIVE); OCCULT BLOOD URINE NEGATIVE (NEGATIVE); PROTEIN URINE 1+ (NEGATIVE); SPECIFIC GRAVITY URINE 1.022 (1.005-1.030); UROBILINOGEN URINE 0.2 E.U./dL (0.2-1.0)
[2019-02-22 07:39] LABS: *AMPHETAMINES SCREEN URINE NEGATIVE (NEGATIVE); *BARBITURATES SCREEN URINE NEGATIVE (NEGATIVE); *BENZODIAZEPINES SCREEN URINE NEGATIVE (NEGATIVE); *COCAINE SCREEN URINE NEGATIVE (NEGATIVE); METHADONE URINE SCREEN NEGATIVE (NEGATIVE)
[2019-02-22 07:40] LABS: CANNABINOID URINE SCREEN NEGATIVE (NEGATIVE); OPIATES URINE SCREEN NEGATIVE (NEGATIVE); PHENCYCLIDINE URINE SCREEN NEGATIVE (NEGATIVE)
[2019-02-22] MEDS ORDERED: KETOROLAC 30MG/ML VIAL IV ONE (10:30)
[2019-02-22 13:45] VITALS: BP 135/82
[2019-03-06] MEDS ORDERED: ASPI-1393 MT (12:26)
== END 2019-02-22 13:45 | disposition home or self-care (01) ==
LOC: ER 06:19 → CANBEDREQ 15:42
DX: R07.9 Chest pain, unspecified (principal); R00.0 Tachycardia, unspecified
CPT/HCPCS: 36415; 71045; 74176; 80053; 80305; 80320; 81003; 81025; 83690; 83880; 84484; 84703; 85025; 85610; 85730; 93005; 96374; 96375; 99284; J1885; J2270; J2405; J3490; G0480

== ENCOUNTER 2019-03-01 03:49 | Inpatient (IN) | payer MEDICAID ==
[2019-03-01] VITALS (9 sets, daily range): BP systolic 91–163; BP diastolic 63–107
[~2019-03-01] VITALS: Ht 157.5 cm; Wt 94.8 kg
[2019-03-01] MEDS ORDERED: KETOROLAC 30MG/ML VIAL IV ONE (04:30)
[2019-03-01 04:55] LABS: BASOPHILS % 0.7 % (0.0-2.0); HEMATOCRIT. 33.2 % (36.0-48.0); HEMOGLOBIN. 10.4 g/dL (12.0-16.0); LYMPHOCYTES % 28.7 % (20.0-50.0); MEAN CORPUSCULAR HEMOGLOBIN 22.2 pg (28.0-32.0); MEAN CORPUSCULAR VOLUME 70.7 fL (81.0-99.0); MEAN PLATELET VOLUME 10.8 fl (7.4-10.4); MONOCYTES % 10.8 % (2.0-8.0); NEUTROPHILS % 58.8 % (40.0-76.0); PLATELET 193 x1000/uL (130-400); RED BLOOD CELL COUNT 4.69 mill/uL (4.2-5.4); RED CELL DISTRIBUTION WIDTH 19.2 % (11.6-14.6)
[2019-03-01 04:58] LABS: CHLORIDE 111 mEq/L (98-107)
[2019-03-01 07:00] LABS: T4 FREE 4.94 ng/dL (0.76-1.46)
[2019-03-01] MEDS ORDERED: IOHEXOL-350 100 ML BOTTLE ONE ×2 (13:26→21:55)
[2019-03-01] MEDS ORDERED: DEXTROSE 50% WATER 50ML SYRINGE IV PRN (17:45)
[2019-03-01] MEDS ORDERED: CLONIDINE 0.1MG TABLET PO PRN (17:45)
[2019-03-01] MEDS ORDERED: ACETAMINOPHEN 325MG TABLET PO PRN (17:45)
[2019-03-01] MEDS ORDERED: HYDROCODONE/ACETAMINOPHEN 5/325MG TABLET PO PRN (17:45)
[2019-03-01] MEDS: DIGOXIN 125MCG TABLET PO SCH (17:57)
[2019-03-01] MEDS: METOPROLOL TARTRATE 50MG TABLET PO SCH (17:58)
[2019-03-01] MEDS ORDERED: INFLUENZA VIRUS VACCINE(AFLURIA) 0.5ML SYR IM ONE (18:15)
[2019-03-01] MEDS ORDERED: HYDRALAZINE 20MG/ML VIAL IV NR (18:17)
[2019-03-01 19:02] LABS: BG BASE EXCESS -2.5 mmol/L (-2.0-2.0); BG CARBOXYHEMOGLOBIN 0.3 % (0.5-1.5); BG DEOXYHEMOGLOBIN 4.3 % (0.0-5.0); BG FRACTION INSPIRED OXYGEN 32; BG HCO3 ACT 21.3 mmol/L (22.0-26.0); BG METHEMOGLOBIN 0.2 % (0.0-1.5); BG OXYGEN SATURATION 95.7 % (92.0-98.5); BG OXYHEMOGLOBIN 95.2 % (94.0-97.0); BG PCO2 33.5 mmHg (35.0-45.0); BG PH 7.422 (7.350-7.450); BG PO2 82.7 mmHg (75.0-100.0); BG SAMPLE SITE RIGHT RADIAL; BG TOTAL HEMOGLOBIN 11.5 g/dL (12.0-18.0); BG VENT MODE NASAL CANNULA
[2019-03-01 19:09] LABS: HEMATOCRIT 34.1 % (36.0-48.0); HEMOGLOBIN 10.8 g/dL (12.0-16.0); MEAN CORPUSCULAR HEMOGLOBIN 22.4 pg (28.0-32.0); MEAN CORPUSCULAR VOLUME 70.7 fL (81.0-99.0); PLATELET 206 x1000/uL (130-400); RED BLOOD CELL COUNT 4.83 mill/uL (4.2-5.4); RED CELL DISTRIBUTION WIDTH 18.6 % (11.6-14.6)
[2019-03-01 19:18] LABS: CHLORIDE 110 mEq/L (98-107)
[2019-03-01 19:23] LABS: PARTIAL THROMBOPLASTIN TIME 29.2 sec (23.4-31.0); PROTHROMBIN TIME 10.7 sec (9.6-11.0)
[2019-03-01 19:25] LABS: LDL CHOLESTEROL 103 mg/dL (5-100)
[2019-03-01 19:28] LABS: CREATINE KINASE 81 IU/L (26-192); CREATINE KINASE MB FRACTION < 1.0 ng/mL (0.5-3.6); HDL CHOLESTEROL 41 mg/dL (40-59)
[2019-03-01] MEDS ORDERED: MORPHINE SULFATE 2 MG/ML CPJ (NOT FOR IM USE) IV PRN (20:00)
[2019-03-01] MEDS ORDERED: BLOOD SUGAR DIAGNOSTIC STRIP TEST SCH ×2 (21:00)
[2019-03-01] MEDS: INSULIN LISPRO 100 UNITS/ML SUBCUT SCH (21:00)
[2019-03-01] MEDS: BLOOD SUGAR DIAGNOSTIC STRIP TEST SCH (21:03)
[2019-03-01] MEDS: ZOLPIDEM TARTRATE 5MG TABLET PO PRN (21:48)
[2019-03-01] MEDS: ENOXAPARIN 30MG/0.3ML SYR SUBCUT SCH (21:52)
[2019-03-02] VITALS (27 sets, daily range): BP systolic 54–151; BP diastolic 20–110
[2019-03-02 04:44] LABS: BASOPHILS % 0.3 % (0.0-2.0); HEMATOCRIT. 33.4 % (36.0-48.0); HEMOGLOBIN. 10.6 g/dL (12.0-16.0); LYMPHOCYTES % 36.5 % (20.0-50.0); MEAN CORPUSCULAR HEMOGLOBIN 22.2 pg (28.0-32.0); MEAN PLATELET VOLUME 11.2 fl (7.4-10.4); MONOCYTES % 10.1 % (2.0-8.0); NEUTROPHILS % 52.1 % (40.0-76.0); PLATELET 215 x1000/uL (130-400); RED BLOOD CELL COUNT 4.77 mill/uL (4.2-5.4); RED CELL DISTRIBUTION WIDTH 18.7 % (11.6-14.6)
[2019-03-02 04:49] LABS: CHLORIDE 109 mEq/L (98-107)
[2019-03-02] MEDS: BLOOD SUGAR DIAGNOSTIC STRIP TEST SCH ×3 (06:24→21:10)
[2019-03-02] MEDS: INSULIN LISPRO 100 UNITS/ML SUBCUT SCH ×3 (06:24→21:10)
[2019-03-02 07:55] LABS: PLATELET ESTIMATE NORMAL
[2019-03-02] MEDS ORDERED: ENOXAPARIN 40MG/0.4ML SYR SUBCUT SCH (09:00)
[2019-03-02] MEDS: METOPROLOL TARTRATE 50MG TABLET PO SCH ×2 (09:05→21:10)
[2019-03-02] MEDS: ASPIRIN 81MG TABLET PO SCH (09:05)
[2019-03-02] MEDS: ENOXAPARIN 30MG/0.3ML SYR SUBCUT SCH ×2 (09:07→21:09)
[2019-03-02] MEDS: METHIMAZOLE 5MG TABLET PO SCH (11:29)
[2019-03-02 12:09] LABS: T4 FREE 5.26 ng/dL (0.76-1.46)
[2019-03-02 16:16] LABS: CREATINE KINASE 69 IU/L (26-192)
[2019-03-02 16:17] LABS: CREATINE KINASE MB FRACTION < 1.0 ng/mL (0.5-3.6)
[2019-03-02 22:06] LABS: *AMPHETAMINES SCREEN URINE NEGATIVE (NEGATIVE); *BARBITURATES SCREEN URINE NEGATIVE (NEGATIVE); *BENZODIAZEPINES SCREEN URINE NEGATIVE (NEGATIVE); *COCAINE SCREEN URINE NEGATIVE (NEGATIVE)
[2019-03-02 22:07] LABS: CANNABINOID URINE SCREEN NEGATIVE (NEGATIVE); METHADONE URINE SCREEN NEGATIVE (NEGATIVE); OPIATES URINE SCREEN NEGATIVE (NEGATIVE); PHENCYCLIDINE URINE SCREEN NEGATIVE (NEGATIVE)
[2019-03-02 23:34] LABS: CREATINE KINASE 62 IU/L (26-192)
[2019-03-02 23:36] LABS: CREATINE KINASE MB FRACTION < 1.0 ng/mL (0.5-3.6)
[2019-03-03] VITALS (12 sets, daily range): BP systolic 102–152; BP diastolic 47–109
[2019-03-03 05:58] LABS: BASOPHILS % 0.5 % (0.0-2.0); EOSINOPHILS % 1.5 % (0.0-5.0); HEMATOCRIT. 37.2 % (36.0-48.0); HEMOGLOBIN. 11.8 g/dL (12.0-16.0); LYMPHOCYTES % 33.3 % (20.0-50.0); MEAN CORPUSCULAR HEMOGLOBIN 22.3 pg (28.0-32.0); MEAN CORPUSCULAR VOLUME 70.4 fL (81.0-99.0); MEAN PLATELET VOLUME 11.1 fl (7.4-10.4); MONOCYTES % 9.3 % (2.0-8.0); NEUTROPHILS % 55.4 % (40.0-76.0); PLATELET 224 x1000/uL (130-400); RED BLOOD CELL COUNT 5.28 mill/uL (4.2-5.4); RED CELL DISTRIBUTION WIDTH 18.1 % (11.6-14.6)
[2019-03-03 06:00] LABS: CHLORIDE 107 mEq/L (98-107)
[2019-03-03 06:08] LABS: CREATINE KINASE 65 IU/L (26-192); HDL CHOLESTEROL 33 mg/dL (40-59); LDL CHOLESTEROL 96 mg/dL (5-100)
[2019-03-03 06:10] LABS: CREATINE KINASE MB FRACTION < 1.0 ng/mL (0.5-3.6)
[2019-03-03] MEDS: INSULIN LISPRO 100 UNITS/ML SUBCUT SCH ×4 (08:00→21:00)
[2019-03-03] MEDS: BLOOD SUGAR DIAGNOSTIC STRIP TEST SCH ×4 (08:13→21:35)
[2019-03-03] MEDS: ASPIRIN 81MG TABLET PO SCH (08:15)
[2019-03-03] MEDS: METOPROLOL TARTRATE 50MG TABLET PO SCH ×2 (08:15→21:35)
[2019-03-03] MEDS: ENOXAPARIN 30MG/0.3ML SYR SUBCUT SCH ×2 (08:16→21:35)
[2019-03-03] MEDS: METHIMAZOLE 5MG TABLET PO SCH (08:29)
[2019-03-03 08:35] LABS: BG BASE EXCESS -1.6 mmol/L (-2.0-2.0); BG CARBOXYHEMOGLOBIN 0.8 % (0.5-1.5); BG DEOXYHEMOGLOBIN 3.3 % (0.0-5.0); BG FRACTION INSPIRED OXYGEN 21; BG HCO3 ACT 22.5 mmol/L (22.0-26.0); BG METHEMOGLOBIN 0.1 % (0.0-1.5); BG OXYGEN SATURATION 96.7 % (92.0-98.5); BG OXYHEMOGLOBIN 95.8 % (94.0-97.0); BG PCO2 35.9 mmHg (35.0-45.0); BG PH 7.415 (7.350-7.450); BG PO2 91.2 mmHg (75.0-100.0); BG SAMPLE SITE RIGHT RADIAL; BG TOTAL HEMOGLOBIN 11.2 g/dL (12.0-18.0); BG VENT MODE ROOM AIR
[2019-03-03] MEDS: DIGOXIN 125MCG TABLET PO SCH (18:33)
[2019-03-04] VITALS (12 sets, daily range): BP systolic 101–140; BP diastolic 46–88
[2019-03-04 07:01] LABS: CHLORIDE 106 mEq/L (98-107)
[2019-03-04 07:10] LABS: LDL CHOLESTEROL 113 mg/dL (5-100)
[2019-03-04 07:11] LABS: HDL CHOLESTEROL 32 mg/dL (40-59)
[2019-03-04] MEDS: INSULIN LISPRO 100 UNITS/ML SUBCUT SCH ×4 (08:00→21:00)
[2019-03-04] MEDS: BLOOD SUGAR DIAGNOSTIC STRIP TEST SCH ×4 (08:17→21:00)
[2019-03-04] MEDS: SERTRALINE HCL 25MG TABLET PO SCH (08:21)
[2019-03-04] MEDS: ENOXAPARIN 30MG/0.3ML SYR SUBCUT SCH ×2 (08:22→20:45)
[2019-03-04] MEDS: ASPIRIN 81MG TABLET PO SCH (08:22)
[2019-03-04] MEDS: METHIMAZOLE 5MG TABLET PO SCH (08:22)
[2019-03-04] MEDS: METOPROLOL TARTRATE 50MG TABLET PO SCH ×2 (08:22→20:44)
[2019-03-04 08:38] LABS: BASOPHILS % 0.9 % (0.0-2.0); EOSINOPHILS % 1.2 % (0.0-5.0); HEMATOCRIT. 35.4 % (36.0-48.0); HEMOGLOBIN. 11.4 g/dL (12.0-16.0); LYMPHOCYTES % 31.6 % (20.0-50.0); MEAN CORPUSCULAR HEMOGLOBIN 22.5 pg (28.0-32.0); MEAN CORPUSCULAR VOLUME 69.6 fL (81.0-99.0); MEAN PLATELET VOLUME 10.8 fl (7.4-10.4); MONOCYTES % 11.1 % (2.0-8.0); NEUTROPHILS % 55.2 % (40.0-76.0); PLATELET 245 x1000/uL (130-400); RED BLOOD CELL COUNT 5.08 mill/uL (4.2-5.4); RED CELL DISTRIBUTION WIDTH 18.1 % (11.6-14.6)
[2019-03-04 10:00] LABS: BG BASE EXCESS -2.4 mmol/L (-2.0-2.0); BG CARBOXYHEMOGLOBIN 0.7 % (0.5-1.5); BG DEOXYHEMOGLOBIN 2.4 % (0.0-5.0); BG FRACTION INSPIRED OXYGEN 21; BG HCO3 ACT 21.9 mmol/L (22.0-26.0); BG METHEMOGLOBIN 0.3 % (0.0-1.5); BG OXYGEN SATURATION 97.6 % (92.0-98.5); BG OXYHEMOGLOBIN 96.6 % (94.0-97.0); BG PCO2 36.1 mmHg (35.0-45.0); BG PH 7.401 (7.350-7.450); BG PO2 106.9 mmHg (75.0-100.0); BG SAMPLE SITE LEFT RADIAL; BG TOTAL HEMOGLOBIN 12.5 g/dL (12.0-18.0); BG VENT MODE ROOM AIR
[2019-03-04] MEDS: DIGOXIN 125MCG TABLET PO SCH (17:27)
[2019-03-04] MEDS: ZOLPIDEM TARTRATE 5MG TABLET PO PRN (22:03)
[2019-03-05] VITALS (12 sets, daily range): BP systolic 103–163; BP diastolic 62–99
[2019-03-05] MEDS: LAMOTRIGINE 25MG TABLET PO SCH ×2 (05:42→08:34)
[2019-03-05 07:39] LABS: BASOPHILS % 0.6 % (0.0-2.0); EOSINOPHILS % 0.9 % (0.0-5.0); HEMOGLOBIN. 11.8 g/dL (12.0-16.0); LYMPHOCYTES % 28.5 % (20.0-50.0); MEAN CORPUSCULAR HEMOGLOBIN 22.3 pg (28.0-32.0); MEAN CORPUSCULAR VOLUME 70.2 fL (81.0-99.0); MEAN PLATELET VOLUME 11.1 fl (7.4-10.4); MONOCYTES % 13.4 % (2.0-8.0); NEUTROPHILS % 56.6 % (40.0-76.0); PLATELET 249 x1000/uL (130-400); RED BLOOD CELL COUNT 5.26 mill/uL (4.2-5.4); RED CELL DISTRIBUTION WIDTH 18.3 % (11.6-14.6)
[2019-03-05 07:49] LABS: CHLORIDE 106 mEq/L (98-107)
[2019-03-05] MEDS: INSULIN LISPRO 100 UNITS/ML SUBCUT SCH ×4 (08:00→20:57)
[2019-03-05] MEDS: BLOOD SUGAR DIAGNOSTIC STRIP TEST SCH ×4 (08:25→20:52)
[2019-03-05] MEDS: ASPIRIN 81MG TABLET PO SCH (08:32)
[2019-03-05] MEDS: SERTRALINE HCL 25MG TABLET PO SCH (08:32)
[2019-03-05] MEDS: METHIMAZOLE 5MG TABLET PO SCH (08:32)
[2019-03-05] MEDS: METOPROLOL TARTRATE 50MG TABLET PO SCH ×2 (08:32→20:51)
[2019-03-05] MEDS: ENOXAPARIN 30MG/0.3ML SYR SUBCUT SCH ×2 (08:33→20:52)
[2019-03-05] MEDS: DIGOXIN 125MCG TABLET PO SCH (17:34)
[2019-03-05] MEDS: ZOLPIDEM TARTRATE 5MG TABLET PO PRN (20:51)
[2019-03-06] VITALS (9 sets, daily range): BP systolic 114–144; BP diastolic 65–82
[2019-03-06] MEDS: INSULIN LISPRO 100 UNITS/ML SUBCUT SCH ×2 (08:00→13:00)
[2019-03-06] MEDS: BLOOD SUGAR DIAGNOSTIC STRIP TEST SCH ×2 (08:11→12:30)
[2019-03-06] MEDS: METOPROLOL TARTRATE 50MG TABLET PO SCH (08:47)
[2019-03-06] MEDS: SERTRALINE HCL 25MG TABLET PO SCH (08:47)
[2019-03-06] MEDS: ASPIRIN 81MG TABLET PO SCH (08:47)
[2019-03-06] MEDS: ENOXAPARIN 30MG/0.3ML SYR SUBCUT SCH (08:47)
[2019-03-06] MEDS: LAMOTRIGINE 25MG TABLET PO SCH (08:47)
[2019-03-06] MEDS: METHIMAZOLE 5MG TABLET PO SCH (08:47)
[2019-03-06] MEDS ORDERED: TAP PO (12:22)
[2019-03-06] MEDS ORDERED: LAM25 PO (12:23)
[2019-03-06] MEDS ORDERED: SERT25TA PO (12:24)
[2019-03-06] MEDS ORDERED: ASPI-1497 MT (12:26)
[2019-03-06] MEDS ORDERED: METO-539 MT (12:26)
== END 2019-03-06 15:53 | disposition home or self-care (01) | DRG 427 ==
LOC: ER 03:49 → 8WST 14:17 → EDBEDREQ 14:20 → EDBEDREQTM 14:20 → ENRESERV 14:22 → MICUNO 18:35 → 5EST 03-03 01:20
PROVIDERS: ADMIT Internal Medicine; ATTEND Internal Medicine
DX: E05.00 Thyrotoxicosis with diffuse goiter without thyrotoxic crisis or storm (principal); J96.01 Acute respiratory failure with hypoxia; G93.41 Metabolic encephalopathy; E44.0 Moderate protein-calorie malnutrition; I11.0 Hypertensive heart disease with heart failure; I50.32 Chronic diastolic (congestive) heart failure; E66.01 Morbid (severe) obesity due to excess calories; E11.65 Type 2 diabetes mellitus with hyperglycemia; E05.90 Thyrotoxicosis, unspecified without thyrotoxic crisis or storm; E03.9 Hypothyroidism, unspecified; E78.5 Hyperlipidemia, unspecified; R00.2 Palpitations; R47.01 Aphasia; F32.9 Major depressive disorder, single episode, unspecified; R00.0 Tachycardia, unspecified; D64.9 Anemia, unspecified; R94.5 Abnormal results of liver function studies; G31.9 Degenerative disease of nervous system, unspecified; Z79.899 Other long term (current) drug therapy; Z82.3 Family history of stroke; Z98.891 History of uterine scar from previous surgery; Z83.3 Family history of diabetes mellitus; Z68.38 Body mass index [BMI] 38.0-38.9, adult
CPT/HCPCS: 36415; 36600; 70496; 70498; 70551; 71045; 71275; 80048; 80053; 80061; 80076; 80305; 82375; 82550; 82553; 82805; 82962; 83036; 83880; 84439; 84443; 84484; 85025; 85027; 85379; 85384; 93005; 93306; 93970; 95816; 96374; 97116; 97162; 97166; 99285; J0360; J1650; J1885; J2270; Q9967

== ENCOUNTER 2019-03-24 20:11 | Inpatient (IN) | payer MEDICAID ==
[~2019-03-24] VITALS: Ht 162.6 cm; Wt 97.5 kg
[~2019-03-24 20:11] MED LIST changes: +ASPI-1393 MT; +LAM25 PO; +METO-539 MT; +SERT25TA PO; +TAP PO
[2019-03-24] MEDS ORDERED: ASPIRIN 81MG TABLET PO ONE (21:30)
[2019-03-24 21:50] LABS: BASOPHILS % 0.6 % (0.0-2.0); EOSINOPHILS % 0.4 % (0.0-5.0); HEMATOCRIT. 30.9 % (36.0-48.0); LYMPHOCYTES % 24.6 % (20.0-50.0); MEAN CORPUSCULAR HEMOGLOBIN 23.3 pg (28.0-32.0); MEAN CORPUSCULAR VOLUME 71.8 fL (81.0-99.0); MEAN PLATELET VOLUME 10.9 fl (7.4-10.4); MONOCYTES % 8.2 % (2.0-8.0); NEUTROPHILS % 66.2 % (40.0-76.0); PLATELET 176 x1000/uL (130-400); RED CELL DISTRIBUTION WIDTH 17.4 % (11.6-14.6)
[2019-03-24 21:56] LABS: CHLORIDE 112 mEq/L (98-107)
[2019-03-25] VITALS (7 sets, daily range): BP systolic 112–164; BP diastolic 51–93
[2019-03-25] MEDS ORDERED: TEMAZEPAM 15MG CAPSULE PO PRN
[2019-03-25] MEDS ORDERED: GUAIFENESIN 200MG/10ML SUGAR FREE UDC PO PRN
[2019-03-25] MEDS ORDERED: MAGNESIUM/ALUMINUM HYDROXIDE/SIMETHICONE 30ML UDC PO PRN
[2019-03-25] MEDS ORDERED: ACETAMINOPHEN 325MG TABLET PO PRN
[2019-03-25] MEDS ORDERED: DIPHENHYDRAMINE 50MG/ML VIAL IV PRN
[2019-03-25] MEDS ORDERED: LORAZEPAM 2MG/ML CPJ IV PRN
[2019-03-25] MEDS ORDERED: ONDANSETRON HCL 4MG/2ML INJ IV PRN
[2019-03-25] MEDS ORDERED: CLONIDINE 0.1MG TABLET PO PRN
[2019-03-25 00:25] LABS: T4 FREE 4.09 ng/dL (0.76-1.46)
[2019-03-25] MEDS ORDERED: LURA40TA PO (01:36)
[2019-03-25] MEDS: METHIMAZOLE 10MG TABLET PO SCH ×4 (02:43→21:52)
[2019-03-25] MEDS: SODIUM CHLORIDE 0.9% INJ 3ML FLUSH IVF SCH ×3 (05:34→21:53)
[2019-03-25] MEDS: SERTRALINE HCL 25MG TABLET PO SCH (09:24)
[2019-03-25] MEDS: FAMOTIDINE 20MG TABLET PO SCH ×2 (09:24→21:53)
[2019-03-25] MEDS: METOPROLOL TARTRATE 50MG TABLET PO SCH ×2 (09:24→21:53)
[2019-03-25] MEDS ORDERED: LOPERAMIDE HCL 2MG CAPSULE PO PRN (13:45)
[2019-03-25] MEDS: POTASSIUM CHLORIDE 10MEQ TABLET SR PO SCH (21:53)
[2019-03-25] MEDS: LAMOTRIGINE 25MG TABLET PO SCH (21:53)
[2019-03-26] VITALS: BP 122/50
[2019-03-26] MEDS: LATUDA 40 MG PO SCH ×2 (00:24→08:43)
[2019-03-26 04:00] VITALS: BP 131/77
[2019-03-26] MEDS: SODIUM CHLORIDE 0.9% INJ 3ML FLUSH IVF SCH (06:21)
[2019-03-26 08:00] VITALS: BP 121/55
[2019-03-26] MEDS: POTASSIUM CHLORIDE 10MEQ TABLET SR PO SCH (08:44)
[2019-03-26] MEDS: FAMOTIDINE 20MG TABLET PO SCH (08:45)
[2019-03-26] MEDS: METOPROLOL TARTRATE 50MG TABLET PO SCH (08:45)
[2019-03-26] MEDS: METHIMAZOLE 10MG TABLET PO SCH (08:45)
[2019-03-26] MEDS: LAMOTRIGINE 25MG TABLET PO SCH (08:45)
[2019-03-26 08:47] LABS: VITAMIN B12 SERUM 394 pg/mL (211-911)
[2019-03-26] MEDS: SERTRALINE HCL 25MG TABLET PO SCH (08:47)
[2019-03-26 09:13] LABS: CHLORIDE 111 mEq/L (98-107)
[2019-03-26 09:22] LABS: PHOSPHORUS 4.2 mg/dL (2.5-4.9)
[2019-03-26 12:00] VITALS: BP 148/89
[2019-03-26] MEDS ORDERED: MAGNESIUM 2 G PREMIX 50 ML IV NR (12:00)
[2019-03-26] MEDS ORDERED: TAP MT (13:09)
[2019-03-26 13:40] VITALS: BP 148/89
== END 2019-03-26 15:58 | disposition home or self-care (01) | DRG 427 ==
LOC: ER 20:11 → ENRESERV 23:28 → 7WST 03-25 00:27
PROVIDERS: ADMIT Internal Medicine; ATTEND Internal Medicine
DX: E05.00 Thyrotoxicosis with diffuse goiter without thyrotoxic crisis or storm (principal); I11.0 Hypertensive heart disease with heart failure; E46 Unspecified protein-calorie malnutrition; E11.65 Type 2 diabetes mellitus with hyperglycemia; I50.9 Heart failure, unspecified; R07.89 Other chest pain; D64.9 Anemia, unspecified; F32.9 Major depressive disorder, single episode, unspecified; F41.9 Anxiety disorder, unspecified; E66.9 Obesity, unspecified; G40.909 Epilepsy, unspecified, not intractable, without status epilepticus; Z82.49 Family history of ischemic heart disease and other diseases of the circulatory system; Z83.3 Family history of diabetes mellitus; Z79.82 Long term (current) use of aspirin; Z98.891 History of uterine scar from previous surgery; Z79.899 Other long term (current) drug therapy; Z68.36 Body mass index [BMI] 36.0-36.9, adult
CPT/HCPCS: 36415; 71045; 80048; 82607; 83036; 83520; 83735; 83880; 84100; 84134; 84439; 84443; 84481; 84484; 93005; 99285; C1893; J3475

== ENCOUNTER 2019-04-11 15:46 | Emergency (ER) | payer MEDICAID ==
[~2019-04-11] VITALS: Ht 162.6 cm; Wt 82.0 kg
[~2019-04-11 15:46] MED LIST changes: +LURA40TA PO; -PRO1 PO; +TAP MT; -TAP PO
[2019-04-11] MEDS ORDERED: SODIUM CHLORIDE 0.9% 1,000 ML IV ONE (19:56)
[2019-04-11] MEDS ORDERED: ONDANSETRON HCL 4MG/2ML INJ IV STA (19:56)
[2019-04-11] MEDS ORDERED: ACETAMINOPHEN 325MG TABLET PO PRN (20:00)
[2019-04-11 20:13] VITALS: BP 149/105
[2019-04-11 20:35] LABS: CLARITY URINE CLEAR (CLEAR); COLOR URINE DARK YELLOW (YELLOW); KETONES URINE NEGATIVE (NEGATIVE); LEUKOCYTE ESTERASE URINE NEGATIVE (NEGATIVE); NITRITE URINE NEGATIVE (NEGATIVE); OCCULT BLOOD URINE NEGATIVE (NEGATIVE); PROTEIN URINE 2+ (NEGATIVE); UROBILINOGEN URINE 0.2 E.U./dL (0.2-1.0)
== END 2019-04-11 21:19 | disposition left against medical advice (07) ==
LOC: ER 15:46
DX: N93.9 Abnormal uterine and vaginal bleeding, unspecified (principal); R51 Headache; I11.0 Hypertensive heart disease with heart failure; I50.9 Heart failure, unspecified; E11.9 Type 2 diabetes mellitus without complications; Z98.890 Other specified postprocedural states; Z79.82 Long term (current) use of aspirin; Z79.899 Other long term (current) drug therapy
CPT/HCPCS: 76830; 76856; 81003; 93005; 99284; J7030; Z7610

== ENCOUNTER 2019-04-14 07:02 | Emergency (ER) | payer MEDICAID ==
[~2019-04-14] VITALS: Ht 162.6 cm; Wt 90.0 kg
[2019-04-14] MEDS ORDERED: ONDANSETRON 4MG ODT PO ONE (11:00)
[2019-04-14] MEDS ORDERED: ACETAMINOPHEN 325MG TABLET PO ONE (11:00)
[2019-04-14 11:47] LABS: BASOPHILS % 0.8 % (0.0-2.0); EOSINOPHILS % 0.5 % (0.0-5.0); HEMATOCRIT. 34.2 % (36.0-48.0); LYMPHOCYTES % 24.8 % (20.0-50.0); MEAN CORPUSCULAR HEMOGLOBIN 23.2 pg (28.0-32.0); MEAN CORPUSCULAR VOLUME 71.9 fL (81.0-99.0); MEAN PLATELET VOLUME 10.7 fl (7.4-10.4); MONOCYTES % 7.2 % (2.0-8.0); NEUTROPHILS % 66.7 % (40.0-76.0); PLATELET 207 x1000/uL (130-400); RED BLOOD CELL COUNT 4.76 mill/uL (4.2-5.4); RED CELL DISTRIBUTION WIDTH 16.7 % (11.6-14.6)
[2019-04-14 11:50] LABS: CHLORIDE 110 mEq/L (98-107)
[2019-04-14 11:54] LABS: CLARITY URINE CLOUDY (CLEAR); COLOR URINE YELLOW (YELLOW); KETONES URINE NEGATIVE (NEGATIVE); LEUKOCYTE ESTERASE URINE NEGATIVE (NEGATIVE); NITRITE URINE NEGATIVE (NEGATIVE); OCCULT BLOOD URINE NEGATIVE (NEGATIVE); PH URINE 5.5 (4.5-8.0); PROTEIN URINE 1+ (NEGATIVE); SPECIFIC GRAVITY URINE 1.027 (1.005-1.030); UROBILINOGEN URINE 0.2 E.U./dL (0.2-1.0)
[2019-04-14 12:02] LABS: B-HCG QUANTITATIVE < 1 mIU/mL (<3)
[2019-04-14 14:30] VITALS: BP 161/93
== END 2019-04-14 14:33 | disposition home or self-care (01) ==
LOC: ER 07:02
DX: N93.8 Other specified abnormal uterine and vaginal bleeding (principal); D21.9 Benign neoplasm of connective and other soft tissue, unspecified; I11.0 Hypertensive heart disease with heart failure; I50.9 Heart failure, unspecified; E11.9 Type 2 diabetes mellitus without complications; Z98.890 Other specified postprocedural states; Z79.899 Other long term (current) drug therapy
CPT/HCPCS: 36415; 80053; 81003; 81025; 84702; 85025; 86850; 86900; 86901; 99283; Q0162

== ENCOUNTER 2019-04-18 | Inpatient (IN) | payer MEDICAID ==
[~2019-04-18] VITALS: Ht 162.6 cm; Wt 99.8 kg
[~2019-04-18] MED LIST changes: -ASPI-1393 MT; +ASPI-1497 MT
[2019-04-18] MEDS ORDERED: ONDANSETRON HCL 4MG/2ML INJ IV STA (01:02)
[2019-04-18] MEDS ORDERED: SODIUM CHLORIDE 0.9% 500 ML IV ONE (01:02)
[2019-04-18 01:23] LABS: CLARITY URINE CLEAR (CLEAR); COLOR URINE YELLOW (YELLOW); KETONES URINE TRACE (NEGATIVE); LEUKOCYTE ESTERASE URINE NEGATIVE (NEGATIVE); NITRITE URINE NEGATIVE (NEGATIVE); OCCULT BLOOD URINE NEGATIVE (NEGATIVE); PROTEIN URINE 2+ (NEGATIVE); SPECIFIC GRAVITY URINE 1.025 (1.005-1.030)
[2019-04-18 01:29] LABS: CHLORIDE 108 mEq/L (98-107)
[2019-04-18 01:34] LABS: BASOPHILS % 0.7 % (0.0-2.0); EOSINOPHILS % 0.4 % (0.0-5.0); HCG SCREEN NEGATIVE; HEMATOCRIT. 33.3 % (36.0-48.0); HEMOGLOBIN. 10.7 g/dL (12.0-16.0); LYMPHOCYTES % 34.2 % (20.0-50.0); MEAN CORPUSCULAR VOLUME 71.7 fL (81.0-99.0); MEAN PLATELET VOLUME 10.7 fl (7.4-10.4); MONOCYTES % 14.5 % (2.0-8.0); NEUTROPHILS % 50.2 % (40.0-76.0); PLATELET 158 x1000/uL (130-400); RED BLOOD CELL COUNT 4.64 mill/uL (4.2-5.4); RED CELL DISTRIBUTION WIDTH 16.1 % (11.6-14.6)
[2019-04-18 01:35] LABS: INR 1.1; PROTHROMBIN TIME 11.1 sec (9.6-11.0)
[2019-04-18 01:38] LABS: ETHANOL BLOOD < 10 mg/dL
[2019-04-18 01:40] LABS: *AMPHETAMINES SCREEN URINE NEGATIVE (NEGATIVE); *BARBITURATES SCREEN URINE NEGATIVE (NEGATIVE)
[2019-04-18 01:41] LABS: *BENZODIAZEPINES SCREEN URINE NEGATIVE (NEGATIVE); *COCAINE SCREEN URINE NEGATIVE (NEGATIVE); CANNABINOID URINE SCREEN NEGATIVE (NEGATIVE); METHADONE URINE SCREEN NEGATIVE (NEGATIVE); OPIATES URINE SCREEN NEGATIVE (NEGATIVE); PHENCYCLIDINE URINE SCREEN NEGATIVE (NEGATIVE)
[2019-04-18] MEDS ORDERED: POTASSIUM CHLORIDE 20MEQ TABLET SR PO ONE (02:00)
[2019-04-18] MEDS ORDERED: ASPIRIN 325MG EC TABLET PO ONE (02:00)
[2019-04-18] MEDS ORDERED: CLONIDINE 0.1MG TABLET PO PRN (02:45)
[2019-04-18] MEDS ORDERED: HYDRALAZINE 20MG/ML VIAL IV PRN (02:45)
[2019-04-18] MEDS ORDERED: DIPHENHYDRAMINE 50MG/ML VIAL IV PRN (02:45)
[2019-04-18] MEDS ORDERED: ONDANSETRON HCL 4MG/2ML INJ IV PRN (02:45)
[2019-04-18 04:06] LABS: T4 FREE 6.14 ng/dL (0.76-1.46)
[2019-04-18] MEDS: DEXT 5%/0.45% NACL 1000ML 1,000 ML IV SCH ×2 (06:30→18:37)
[2019-04-18] MEDS: ACETAMINOPHEN 325MG TABLET PO PRN (12:40)
[2019-04-18] MEDS: METHIMAZOLE 10MG TABLET PO SCH ×2 (12:41→18:34)
[2019-04-18] MEDS: LAMOTRIGINE 25MG TABLET PO SCH (12:43)
[2019-04-18] MEDS: SERTRALINE HCL 25MG TABLET PO SCH (12:43)
[2019-04-18] MEDS: FAMOTIDINE 20MG/2ML VIAL IV SCH ×2 (12:53→20:34)
[2019-04-18] MEDS: METOPROLOL TARTRATE 50MG TABLET PO SCH ×2 (12:53→20:34)
[2019-04-18] MEDS ORDERED: POTASSIUM CHLORIDE 20MEQ TABLET SR PO NR (17:30)
[2019-04-18 18:10] VITALS: BP 125/68
[2019-04-18] MEDS ORDERED: MAGNESIUM 4 G PREMIX 100 ML IV NR (18:30)
[2019-04-18 20:00] VITALS: BP 157/81
[2019-04-18] MEDS ORDERED: PNEUMOCOCCAL 23-VAL P-SAC VAC 0.5 ML IM ONE (22:00)
[2019-04-18] MEDS ORDERED: INFLUENZA VIRUS VACCINE(AFLURIA) 0.5ML SYR IM ONE (22:00)
[2019-04-18] MEDS: GUAIFENESIN-DM 200MG-20MG/10ML UDC PO PRN (23:26)
[2019-04-19] VITALS: BP 136/80
[2019-04-19 04:00] VITALS: BP 149/81
[2019-04-19 07:29] LABS: CHLORIDE 108 mEq/L (98-107)
[2019-04-19 08:00] VITALS: BP 124/85
[2019-04-19] MEDS: GUAIFENESIN-DM 200MG-20MG/10ML UDC PO PRN ×2 (09:19→20:57)
[2019-04-19] MEDS: METOPROLOL TARTRATE 50MG TABLET PO SCH ×2 (09:19→20:58)
[2019-04-19] MEDS: LAMOTRIGINE 25MG TABLET PO SCH (09:19)
[2019-04-19] MEDS: METHIMAZOLE 10MG TABLET PO SCH ×2 (09:20→18:03)
[2019-04-19] MEDS: SERTRALINE HCL 25MG TABLET PO SCH (09:20)
[2019-04-19] MEDS: FAMOTIDINE 20MG TABLET PO SCH ×2 (10:25→20:57)
[2019-04-19 12:00] VITALS: BP 178/92
[2019-04-19] MEDS ORDERED: LORAZEPAM 2MG/ML CPJ IV PRN (12:30)
[2019-04-19 16:00] VITALS: BP 153/70
[2019-04-19] MEDS: DEXT 5%/0.45% NACL 1000ML 1,000 ML IV SCH (22:30)
[2019-04-20] VITALS: BP 150/72
[2019-04-20] MEDS: ACETAMINOPHEN 325MG TABLET PO PRN (00:43)
[2019-04-20 04:00] VITALS: BP 168/80
[2019-04-20 08:00] VITALS: BP 164/78
[2019-04-20] MEDS: GUAIFENESIN-DM 200MG-20MG/10ML UDC PO PRN (09:09)
[2019-04-20] MEDS: METOPROLOL TARTRATE 50MG TABLET PO SCH (09:09)
[2019-04-20] MEDS: METHIMAZOLE 10MG TABLET PO SCH (09:09)
[2019-04-20] MEDS: LAMOTRIGINE 25MG TABLET PO SCH (09:09)
[2019-04-20] MEDS: SERTRALINE HCL 25MG TABLET PO SCH (09:10)
[2019-04-20 11:20] VITALS: BP 126/43
[2019-04-20 15:42] VITALS: BP_SYST 138; BP_SYST 173; BP_DIAS 59; BP_DIAS 79
[2019-04-20 15:52] VITALS: BP 138/79
== END 2019-04-20 16:47 | disposition home or self-care (01) | DRG 427 ==
LOC: ER → 7WST 02:51 → ENRESERV 07:34 → CANRESERV 07:34 → EDBEDREQSVC 07:39 → ENRESERV 14:57
PROVIDERS: ADMIT Internal Medicine; ATTEND Internal Medicine
DX: E05.90 Thyrotoxicosis, unspecified without thyrotoxic crisis or storm (principal); I11.0 Hypertensive heart disease with heart failure; I50.9 Heart failure, unspecified; R10.9 Unspecified abdominal pain; E03.9 Hypothyroidism, unspecified; G40.909 Epilepsy, unspecified, not intractable, without status epilepticus; E11.9 Type 2 diabetes mellitus without complications; R07.9 Chest pain, unspecified; F32.9 Major depressive disorder, single episode, unspecified; Z79.899 Other long term (current) drug therapy; Z98.891 History of uterine scar from previous surgery; Z79.82 Long term (current) use of aspirin
CPT/HCPCS: 36415; 71045; 74176; 80048; 80053; 80305; 80320; 81003; 81025; 82962; 83735; 83880; 84100; 84439; 84443; 84484; 84703; 85025; 87493; 87804; 90686; 90732; 93005; 96374; 99285; C1893; J2405; J3475; J3490; J7030; G0480

== ENCOUNTER 2019-06-06 04:41 | Emergency (ER) | payer MEDICAID ==
[~2019-06-06] VITALS: Ht 160 cm; Wt 90.7 kg
[2019-06-06 06:01] LABS: CLARITY URINE CLEAR (CLEAR); COLOR URINE YELLOW (YELLOW); KETONES URINE NEGATIVE (NEGATIVE); LEUKOCYTE ESTERASE URINE NEGATIVE (NEGATIVE); NITRITE URINE NEGATIVE (NEGATIVE); OCCULT BLOOD URINE NEGATIVE (NEGATIVE); PH URINE 5.5 (4.5-8.0); PROTEIN URINE NEGATIVE (NEGATIVE); SPECIFIC GRAVITY URINE 1.022 (1.005-1.030)
[2019-06-06 06:04] LABS: BASOPHILS % 0.7 % (0.0-2.0); EOSINOPHILS % 0.8 % (0.0-5.0); HEMATOCRIT. 34.7 % (36.0-48.0); HEMOGLOBIN. 11.6 g/dL (12.0-16.0); LYMPHOCYTES % 38.6 % (20.0-50.0); MEAN CORPUSCULAR HEMOGLOBIN 24.8 pg (28.0-32.0); MEAN PLATELET VOLUME 10.3 fl (7.4-10.4); MONOCYTES % 7.6 % (2.0-8.0); NEUTROPHILS % 52.3 % (40.0-76.0); PLATELET 262 x1000/uL (130-400); RED BLOOD CELL COUNT 4.68 mill/uL (4.2-5.4)
[2019-06-06 06:13] LABS: CHLORIDE 109 mEq/L (98-107)
[2019-06-06] MEDS ORDERED: ONDANSETRON 4MG ODT PO ONE (06:45)
[2019-06-06] MEDS ORDERED: IBUPROFEN 600MG TABLET PO ONE (06:45)
[2019-06-06] MEDS ORDERED: PANTOPRAZOLE 40MG DR TABLET PO ONE (06:45)
[2019-06-06 06:52] VITALS: BP 135/91
== END 2019-06-06 06:53 | disposition home or self-care (01) ==
LOC: ER 05:35
DX: J06.9 Acute upper respiratory infection, unspecified (principal); M54.89 Other dorsalgia; N92.6 Irregular menstruation, unspecified; R11.2 Nausea with vomiting, unspecified; I10 Essential (primary) hypertension; G40.909 Epilepsy, unspecified, not intractable, without status epilepticus; F31.9 Bipolar disorder, unspecified
CPT/HCPCS: 36415; 80053; 81003; 81025; 83690; 85025; 99284; Q0162

== ENCOUNTER 2023-11-12 14:51 | Emergency (ER) | payer MEDICAID ==
[~2023-11-12] VITALS: Ht 157.5 cm; Wt 112.0 kg
[~2023-11-12 14:51] MED LIST changes: -LURA40TA PO; +LURA40TA2 PO
[2023-11-12 15:01] VITALS: TEMP 97.8; O2SAT 99
[2023-11-12 16:02] LABS: BASOPHILS % 0.7 % (0.0-2.0); EOSINOPHILS % 0.7 % (0.0-5.0); HEMATOCRIT. 37.5 % (36.0-48.0); HEMOGLOBIN. 12.2 g/dL (12.0-16.0); LYMPHOCYTES % 22.1 % (20.0-50.0); MEAN CORPUSCULAR HEMOGLOBIN 26.5 pg (28.0-32.0); MEAN CORPUSCULAR HGB CONC 32.6 g/dL (31.0-37.0); MEAN CORPUSCULAR VOLUME 81.3 fL (81.0-99.0); MEAN PLATELET VOLUME 10.9 fl (7.4-10.4); MONOCYTES % 5.3 % (2.0-8.0); NEUTROPHILS % 71.2 % (40.0-76.0); PLATELET 233 x1000/uL (130-400); RED BLOOD CELL COUNT 4.61 mill/uL (4.2-5.4); RED CELL DISTRIBUTION WIDTH 14.7 % (11.6-14.6); WHITE BLOOD COUNT 8.7 x1000/uL (4.5-11.0)
[2023-11-12 16:09] LABS: CHLORIDE 105 mEq/L (98-107); POTASSIUM 3.7 mEq/L (3.5-5.1); SODIUM 137 mEq/L (136-145)
[2023-11-12 16:10] LABS: CARBON DIOXIDE 26 mEq/L (21-32)
[2023-11-12 16:11] LABS: CALCIUM 9.5 mg/dL (8.7-10.4)
[2023-11-12 16:15] LABS: CLARITY URINE CLEAR (CLEAR); COLOR URINE YELLOW (YELLOW); GLUCOSE URINE NEGATIVE (NEGATIVE); KETONES URINE NEGATIVE (NEGATIVE); LEUKOCYTE ESTERASE URINE NEGATIVE (NEGATIVE); NITRITE URINE NEGATIVE (NEGATIVE); OCCULT BLOOD URINE NEGATIVE (NEGATIVE); PH URINE 5.5 (4.5-8.0); PROTEIN URINE TRACE (NEGATIVE); SPECIFIC GRAVITY URINE 1.024 (1.005-1.030)
[2023-11-12 16:15] LABS: CREATININE 0.7 mg/dL (0.6-1.0); GLUCOSE 88 mg/dL (70-105); UREA NITROGEN BLOOD 12 mg/dL (9-23)
[2023-11-12 16:17] LABS: ALANINE AMINOTRANSFERASE 8 IU/L (10-49); ALBUMIN 4.8 g/dL (3.2-4.8); ASPARTATE AMINOTRANSFERASE 12 IU/L (<34); BILIRUBIN TOTAL 0.3 mg/dL (0.1-1.0)
[2023-11-12 16:18] LABS: PROTEIN TOTAL 8.1 g/dL (6.0-8.3)
[2023-11-12 16:19] LABS: TROPONIN I HIGH SENSITIVITY 7 ng/L (3.0-34)
[2023-11-12 16:24] LABS: ETHANOL BLOOD < 10 mg/dL (<10)
[2023-11-12 16:36] LABS: BACTERIA URINE 1+; RBC URINE 0-2 /hpf (0-2); SQUAMOUS EPITHELIAL CELL URINE 1+ /lpf (RARE/1+); WBC URINE 0-2 /hpf (0-2)
[2023-11-12 17:29] LABS: TROPONIN I HIGH SENSITIVITY 7 ng/L (3.0-34)
[2023-11-12 19:13] LABS: TROPONIN I HIGH SENSITIVITY 7 ng/L (3.0-34)
[2023-11-12] MEDS: NIFEDIPINE XL 30MG TAB PO ONE (19:55)
[2023-11-12 19:57] VITALS: BP 160/94; PULSE 71; RESP 15
[2023-11-12] MEDS ORDERED: IOHEXOL-300 100 ML BOTTLE ONE (21:28)
== END 2023-11-12 19:58 | disposition home or self-care (01) ==
LOC: ER 14:51
DX: R07.89 Other chest pain (principal); I10 Essential (primary) hypertension; N28.1 Cyst of kidney, acquired; F31.9 Bipolar disorder, unspecified; F43.10 Post-traumatic stress disorder, unspecified; E03.9 Hypothyroidism, unspecified
CPT/HCPCS: 80053; 81003; 81025; 80320; 83690; 84443; 85025; 84484; 36415; 71045; 70450; 74177; 93005; 99285; Q9967; Z7610; G0480